=== PATIENT | male | born 1970 | race Caucasian/White ===

== ENCOUNTER 2022-07-18 10:30 | Outpatient (CLI) | payer BC, SELFPAY ==
--- NOTE | ~2022-07-18 | XR_ITS ---
EXAMINATION: XR foot LT 2V DATE: 07/18/2022 10:56 INDICATION: Left foot pain. TECHNIQUE: 2 views of left foot were obtained. COMPARISON: None. FINDINGS: Bone alignment is normal. No fracture. Joint spaces are normal. IMPRESSION: 1. Normal left foot. Reviewed, dictated and finalized at location A. [employer] IMPRESSION: 1. Normal left foot.
[2022-07-18 10:55] LABS: Hematocrit 43.8 % (42.0-52.0); Hemoglobin 14.5 g/dL (14.0-18.0); Mean Corpuscular HGB Conc 33.1 g/dl (32-36); Mean Corpuscular Hemoglobin 29.4 pg (26-34); Mean Corpuscular Volume 88.8 fl (80-100); Mean Platelet Volume 9.4 fl (7.4-10.4); Platelet Count Result 260 k/mm3 (150-375); Red Blood Count 4.93 M/mm3 (4.6-6.20); Red Cell Distribution Width 13.3 % (11.5-14.5); White Blood Count 4.6 K/mm3 (4.5-10.0)
[2022-07-18 11:23] LABS: LDL Cholesterol Direct 241 mg/dL
[2022-07-18 11:29] LABS: Alanine Aminotransferase 35 U/L (6-50); Albumin Level 4.7 g/dL (3.5-5.1); Alkaline Phosphatase 74 U/L (38-126); Anion Gap 6 mmol/L (8-16); Aspartate Amino Transferase 28 U/L (17-59); Bilirubin,Total 0.7 mg/dL (0.2-1.3); Blood Urea Nitrogen 20 mg/dL (9-20); Calcium 9.1 mg/dL (8.4-10.2); Carbon Dioxide 28 mmol/L (22-30); Chloride 104 mmol/L (98-107); Estimated Glomerular Filt Rate > 60; Glucose 106 mg/dL (65-110); HDL Direct 44 mg/dL; Potassium 4.2 mmol/L (3.4-5.0); Sodium 138 mmol/L (137-145); Triglycerides 207 mg/dL (<150)
[2022-07-18 11:39] LABS: Prostate Specific Antigen 2.2 ng/mL (< OR = 4.0)
[2022-07-18 11:57] LABS: Cholesterol 409 mg/dL (0-200)
== END 2022-07-18 10:31 | disposition home or self-care (01) ==
LOC: ANHLAB 10:33
PROVIDERS: PCP Emergency Medicine; Visit Provider Emergency Medicine
DX: S99.922A Unspecified injury of left foot, initial encounter (principal); T14.90XA Injury, unspecified, initial encounter; R53.83 Other fatigue; Z13.220 Encounter for screening for lipoid disorders; Z12.5 Encounter for screening for malignant neoplasm of prostate; Z01.83 Encounter for blood typing
CPT/HCPCS: 36415; 73620; 80053; 80061; 84153; 84443; 85027; 86900; 86901; G0103

== ENCOUNTER 2022-10-10 09:46 | Outpatient (CLI) | payer BC, SELFPAY ==
[2022-10-10 10:29] LABS: Cholesterol 227 mg/dL (0-200); HDL Direct 36 mg/dL; Triglycerides 125 mg/dL (<150)
[2022-10-10 10:40] LABS: LDL Cholesterol Direct 138 mg/dL
== END 2022-10-10 09:47 | disposition home or self-care (01) ==
LOC: ANHLAB 09:48
PROVIDERS: PCP Emergency Medicine; Visit Provider Emergency Medicine
DX: E78.5 Hyperlipidemia, unspecified (principal)
CPT/HCPCS: 36415; 80061

== ENCOUNTER 2023-02-02 10:30 | Outpatient (CLI) | payer BC, SELFPAY ==
[2023-02-02 11:37] LABS: Alanine Aminotransferase 38 U/L (6-50); Albumin Level 4.7 g/dL (3.5-5.1); Alkaline Phosphatase 65 U/L (38-126); Anion Gap 8 mmol/L (8-16); Aspartate Amino Transferase 37 U/L (17-59); Bilirubin,Total 0.6 mg/dL (0.2-1.3); Blood Urea Nitrogen 17 mg/dL (9-20); Calcium 8.8 mg/dL (8.4-10.2); Carbon Dioxide 29 mmol/L (22-30); Chloride 103 mmol/L (98-107); Cholesterol 220 mg/dL (0-200); Estimated Glomerular Filt Rate > 60; Glucose 104 mg/dL (65-110); HDL Direct 49 mg/dL; Potassium 4.4 mmol/L (3.4-5.0); Sodium 140 mmol/L (137-145); Triglycerides 70 mg/dL (<150)
[2023-02-02 11:48] LABS: LDL Cholesterol Direct 130 mg/dL
[2023-02-06 00:24] LABS: Vitamin D 1,25 (OH)2 Total 36 pg/mL (18-72); Vitamin D2 1,25 (OH)2 <8 pg/mL; Vitamin D3 1,25 (OH)2 36 pg/mL
== END 2023-02-02 10:31 | disposition home or self-care (01) ==
LOC: ANHLAB 10:32
PROVIDERS: PCP Emergency Medicine; Visit Provider Emergency Medicine
DX: E55.9 Vitamin D deficiency, unspecified (principal); R53.83 Other fatigue; Z13.220 Encounter for screening for lipoid disorders
CPT/HCPCS: 36415; 80053; 80061; 82652

== ENCOUNTER 2023-02-12 11:28 | Outpatient (CLI) | payer BC, SELFPAY ==
--- NOTE | ~2023-02-12 | XR_ITS ---
Right Hand Technique: PA and lateral views were obtained. Clinical History: Pain Findings: No acute fracture or dislocation is seen. Osseous alignment is anatomic. Joint spaces are p reserved. Soft tissues are unremarkable. Impression: Unremarkable right hand. Reviewed, dictated and finalized at location M. Impression: Unremarkable right hand.
--- NOTE | ~2023-02-12 | XR_ITS ---
XR shoulder LT min 2V DATE: 02/12/2023 11:47 INDICATION: Left shoulder pain TECHNIQUE: 4 views COMPARISON: None FINDINGS: Prominent degenerative disc disease and uncovertebral joint spurring is noted in the lower cervical spine. No recent fracture or dislocation, periosteal reaction or bone destruction of the left shoulder is de tected. No abnormal left shoulder soft tissue calcification. Mild degenerative change at the left acromioclavicular joint. Degenerative spurring of the thoracic spine. IMPRESSION: Prominent degenerative disc disease and uncovertebral joint spurring in the lower cervica l spine Mild degenerative change of the left acromioclavicular joint Reviewed, dictated and finalized at location B. IMPRESSION: Prominent degenerative disc disease and uncovertebral joint spurrin g in the lower cervical spine Mild degenerative change of the left acromioclavicular joint
== END 2023-02-12 11:29 | disposition home or self-care (01) ==
PROVIDERS: PCP Emergency Medicine; Visit Provider Emergency Medicine
DX: M79.641 Pain in right hand (principal); M25.512 Pain in left shoulder; M50.30 Other cervical disc degeneration, unspecified cervical region
CPT/HCPCS: 73030; 73120

== ENCOUNTER 2023-08-31 11:06 | Outpatient (CLI) | payer BC, SELFPAY ==
--- NOTE | ~2023-08-31 | XR_ITS ---
XR chest 2V DATE: 08/31/2023 11:17 INDICATION: Chronic cough TECHNIQUE: PA and lateral views COMPARISON: None FINDINGS: There is minimal bibasilar atelectasis. The lungs are otherwise clear. Normal heart size. No hilar or mediastinal enlargement. No pleural effusion or pulmonary vascular con gestion or pneumothorax is detected. Postoperative change at right shoulder. IMPRESSION: Minimal atelectasis at the lung bases. Reviewed, dictated and finalized at location B. [employer]
== END 2023-08-31 11:07 | disposition home or self-care (01) ==
LOC: ANHIMG 11:07
PROVIDERS: PCP Emergency Medicine; Visit Provider Emergency Medicine
DX: R05.3 Chronic cough (principal); J98.11 Atelectasis
CPT/HCPCS: 71046

== ENCOUNTER 2023-11-07 08:54 | Outpatient (CLI) | payer BC, SELFPAY ==
--- NOTE | 2023-11-07 08:57 | EST_ITS ---
Patient Info Name: Pete Napoles Age: 52 years : 1970 Gender: Male Ht: 70 in Wt: 225 lbs BSA: 2.28 m2 HR: 73 bpm BP: 152 / 100 mmHg Heart Rhythm: Sinus Rhythm Exam Date: 11/07/2023 9:12 AM Exam Location: [facility] Patient Status: Outpatient Admit Date: 11/07/2023 Staff Ordering Physician: Dani Payton MD Attending Provider: Dani Payton MD Exercise Technologist: Marci Gustafson CT Exercise Physician: Jose C Ibarra DO Exam Type: CA stress test treadmill Study Info Indications R06.09 - Other forms of dyspnea A treadmill exercise stress test was performed. Summary 1. 1. Negative Yimi exercise stress test for ischemic ST changes by ECG criteria. 2. 2. Good functional capacity, achieving 10 METs of workload. 3. 3. Baseline hypertension with hypertensive response to exercise. 4. 4. Appropriate HR response to exercise. 5. 5. Appropriate HR recovery at 1 minute post exercise. 6. 6. No imaging with stress testing. 7. 7. Patient informed of the above results. Protocol: Yimi Stress ECG Details Stage: REST Duration (min): 5 min : 28 sec Speed (mph): 0.0 Grade (%): 0 HR (bpm): 79 SBP (mmHg): 152 DBP (mmHg): 100 METS: --- Stage: REST Duration (min): 7 min : 21 sec Speed (mph): 0.0 Grade (%): 0 HR (bpm): 84 SBP (mmHg): 146 DBP (mmHg): 102 METS: --- Stage: STAGE 1 Duration (min): 1 min : 0 sec Speed (mph): 1.7 Grade (%): 10 HR (bpm): 104 SBP (mmHg): 146 DBP (mmHg): 102 METS: --- Stage: STAGE 1 Duration (min): 2 min : 0 sec Speed (mph): 1.7 Grade (%): 10 HR (bpm): 117 SBP (mmHg): 146 DBP (mmHg): 102 METS: --- Stage: STAGE 1 Duration (min): 3 min : 0 sec Speed (mph): 1.7 Grade (%): 10 HR (bpm): 125 SBP (mmHg): 146 DBP (mmHg): 102 METS: --- Stage: STAGE 2 Duration (min): 1 min : 0 sec Speed (mph): 2.5 Grade (%): 12 HR (bpm): 128 SBP (mmHg): 177 DBP (mmHg): 105 METS: --- Stage: STAGE 2 Duration (min): 2 min : 0 sec Speed (mph): 2.5 Grade (%): 12 HR (bpm): 133 SBP (mmHg): 200 DBP (mmHg): 103 METS: --- Stage: STAGE 2 Duration (min): 3 min : 0 sec Speed (mph): 2.5 Grade (%): 12 HR (bpm): 131 SBP (mmHg): 200 DBP (mmHg): 103 METS: --- Stage: STAGE 3 Duration (min): 1 min : 0 sec Speed (mph): 3.4 Grade (%): 14 HR (bpm): 144 SBP (mmHg): 206 DBP (mmHg): 101 METS: --- Stage: STAGE 3 Duration (min): 2 min : 0 sec Speed (mph): 3.4 Grade (%): 14 HR (bpm): 143 SBP (mmHg): 206 DBP (mmHg): 101 METS: --- Stage: STAGE 3 Duration (min): 3 min : 0 sec Speed (mph): 3.4 Grade (%): 14 HR (bpm): 151 SBP (mmHg): 207 DBP (mmHg): 95 METS: --- Stage: STAGE 4 Duration (min): 0 min : 1 sec Speed (mph): 4.2 Grade (%): 16 HR (bpm): 151 SBP (mmHg): 207 DBP (mmHg): 95 METS: --- Stage: RECOVERY Duration (min): 0 min : 58 sec Speed (mph):
== END 2023-11-07 08:55 | disposition home or self-care (01) ==
LOC: ANHCARD 08:55
PROVIDERS: PCP Emergency Medicine; Visit Provider Emergency Medicine
DX: R06.09 Other forms of dyspnea (principal)
CPT/HCPCS: 93017

== ENCOUNTER 2025-04-03 10:18 | Outpatient (CLI) | payer BC, SELFPAY ==
[2025-04-03 11:45] LABS: Alanine Aminotransferase 32 U/L (6-50); Albumin Level 4.4 g/dL (3.5-5.1); Alkaline Phosphatase 72 U/L (38-126); Anion Gap 7 mmol/L (4-12); Aspartate Amino Transferase 36 U/L (17-59); Bilirubin,Total 0.7 mg/dL (0.2-1.3); Blood Urea Nitrogen 16 mg/dL (9-20); Calcium 9.5 mg/dL (8.4-10.2); Carbon Dioxide 24 mmol/L (22-30); Chloride 104 mmol/L (98-107); Cholesterol 238 mg/dL (0-200); Estimated Glomerular Filt Rate > 60; Glucose 103 mg/dL (65-110); HDL Direct 46 mg/dL; Potassium 4.4 mmol/L (3.4-5.0); Sodium 135 mmol/L (137-145); Total Protein 7.7 g/dL (6.3-8.2); Triglycerides 124 mg/dL (<150)
[2025-04-03 12:21] LABS: Prostate Specific Antigen 3.2 ng/mL (< OR = 4.0)
== END 2025-04-03 10:19 | disposition home or self-care (01) ==
PROVIDERS: PCP Emergency Medicine; Visit Provider Emergency Medicine
DX: Z12.5 Encounter for screening for malignant neoplasm of prostate (principal); E78.5 Hyperlipidemia, unspecified; E55.9 Vitamin D deficiency, unspecified
CPT/HCPCS: 36415; 80053; 80061; 82306; 84153; G0103

== ENCOUNTER 2025-05-02 12:13 | Outpatient (CLI) | payer BC, SELFPAY | END 2025-05-02 12:14 | disposition home or self-care (01) | PROVIDERS: PCP Emergency Medicine; Visit Provider Emergency Medicine | DX: R19.7 Diarrhea, unspecified (principal) | CPT/HCPCS: 83013 ==

== ENCOUNTER 2025-05-06 12:31 | Outpatient (CLI) | payer BC, SELFPAY | END 2025-05-06 12:32 | disposition home or self-care (01) | PROVIDERS: PCP Emergency Medicine; Visit Provider Emergency Medicine | DX: R19.7 Diarrhea, unspecified (principal) | CPT/HCPCS: 87177 ==